=== PATIENT | female | born 1980 | race Two or more races ===

== ENCOUNTER → 2024-05-30 | Outpatient (CLI) | payer MEDICAID, SELFPAY ==
--- NOTE | 2024-05-30 13:30 | XR_ITS ---
Examination: Breast ultrasound, unilateral, left complete Date and time of exam: May 30, 2024 1350 hours INDICATIONS: Breast pain 2 months, 11:00 nodule 8 mm left breast sonogram 12/03/2023 Technique: Real-time chen scale ultrasonographic imaging performed left breast including all 4 quadrants as well as nipple retroareolar and axillary region. Findings: Multiple benign cysts 11:00 nodule 7 x 5 mm IMPRESSION: BI-RADS Category 2: Benign findings
== END | disposition home or self-care (01) ==
LOC: CDIM 13:04
PROVIDERS: PCP Family Medicine; Referring Provider Family Medicine; Visit Provider Family Medicine
DX: N63.0 Unspecified lump in unspecified breast (principal)
CPT/HCPCS: 76641

== ENCOUNTER 2024-08-29 19:53 | Emergency (ER) | payer MEDICAID, SELFPAY ==
[2024-08-29 19:54] VITALS: BMI 29.8
[2024-08-29 20:19] VITALS: BP 123/78; PULSE 83; RESP 17; TEMP 36.9; O2SAT 96
--- NOTE | 2024-08-29 20:30 | PD.EDABDPN ---
ED Abdominal Pain RME/HPI General Chief Complaint: Abdominal Pain Stated complaint: L SIDE ABD PAIN X 3 DAYS Time seen by provider: 08/29/24 20:30 Arrival date/time: 08/29/24 19:53 Source: patient Limitations: no limitations RME / HPI RME / HPI narrative: 44-year-old female presents to the ED with a complaint of left lower quadrant pain she describes as intermittent and sharp that causes radiating pain down to her left lower extremity. This began 4 days ago. Denies fever. Complains of nausea denies vomiting denies diarrhea. MD complaint: abdominal pain Onset (ago): day(s) (4 days) Consistency: intermittent Location: [facility] Related Data LMP Date: 07/17/24 Previous Rx's ?Medication ?Instructions ?Recorded metronidazole 500 mg tablet 500 mg PO Q8H #30 tabs 08/29/24 naproxen 500 mg tablet 500 mg PO BID #20 tabs 08/29/24 sulfamethoxazole 800 1 tab PO BID #20 tabs 08/29/24 mg-trimethoprim 160 mg tablet (Bactrim DS) Allergies Allergy/AdvReac Type Severity Reaction Status Date / Time NKA* Allergy Uncoded 08/29/24 19:57 Review of Systems Constitutional Constitutional: Reports system reviewed and no additional complaints, except as documented Eyes Eyes: Reports system reviewed and no additional complaints, except as documented, Denies dry eyes, Denies exophthalmos and Reports floaters Cardiovascular Cardiovascular: Denies chest pain with activity and Denies claudication ED Exam Narrative Physical exam: There is tenderness to palpation in the left lower quadrant causing the patient to grimace. The right lower quadrant is nontender to palpation negative rebound tenderness. There is decreased bowel sounds. Otherwise there is no guarding and no masses present. General Limitations: Present no limitations General appearance: Present alert and in no apparent distress Head Head exam: Present atraumatic Eye Eye exam: Present normal appearance and EOMI ENT ENT exam: Present normal exam, normal oropharynx and mucous membranes moist Neck Neck exam: Present normal inspection, full ROM and trachea midline Chest Chest inspection: Present normal inspection and symmetric chest wall rise Respiratory Respiratory exam: Present normal lung sounds bilaterally Cardiovascular Cardiovascular exam: Present regular rate, normal rhythm and normal heart sounds Abdominal Exam Abdominal exam: Present soft, tenderness (Left lower quadrant) and normal bowel sounds Abdominal tenderness: Present LLQ Extremities Exam Extremities exam: Present normal inspection and full ROM Back Exam Back exam: Present normal inspection and full ROM Neurological Exam Neurological exam: Present alert and oriented X3 Psychiatric Psychiatric exam: Present normal affect and normal mood Skin Skin exam: Present warm, dry, intact and normal color Course Course Course Narrative: Patient will have a UA, CMP, CBC, hCG, CT of the abdomen and [place]. Quality Measures none Orders Category Date Time Status CT abdomen pelvis wo con Stat Exams 08/29/24 20:34 Completed CBC Stat Lab 08/29/24 20:27 Completed Comprehensive Metabolic Panel Stat Lab 08/29/24 20:27 Completed HCG Qualitative,Urine Stat Lab 08/29/24 20:41 Completed Lipase Stat Lab 08/29/24 20:27 Completed Urinalysis Stat Lab 08/29/24 20:41 Completed HYDROcodone/APAP 10/325 [[place] 10/325] Med 08/29/24 20:34 Discontinued 1 tab PO X1 ONE Vital Signs Vital signs: Vital Signs Temperature 98.4 F 08/29/24 20:19 Pulse Rate 83 08/29/24 20:19 Respiratory Rate 17 08/29/24 20:19 Blood Pressure 123/78 08/29/24 20:19 Pulse Oximetry (%) 96 08/29/24 20:19 Oxygen Delivery Method Room Air 08/29/24 20:19 Abdominal Pain MDM MDM Narrative MDM Narrative:: I reviewed the CT results with the patient explaining to her that she has diverticulitis. I will prescribe Flagyl for her diverticulitis. She is to primary care physician for a follow-up to today's visit within a week or sooner if worse. The mass that is proximal to the uterus is being watched by her primary care physician. She is to have a follow-up within 6 months. Patient is discharged in no apparent distress. Patient data External records reviewed:: Other (specify) (NA) Clinical information provided by:: patient Social determinants that could affect healthcare access:: none (NA) Patient has the following chronic illnesses:: Patient has no known chronic illnesses How is presenting disease/condition affected by chronic disease/condition?: no chronic disease (Patient has no known chronic illness) Evaluation data The following diagnostics were reviewed and interpreted by me:: radiology exam(s) Lab and/or radiology exams considered but not ordered:: I explained the results of the CAT scan to the patient. Interpretation Summary: Diverticulitis, mass adjoining the uterus Medications / Prescriptions Medications or Prescriptions considered but not ordered:: N/A Medication administrations:: Medication Administration History Discontinued Medications Hydrocodone Bitart/Acetaminophen (Hydrocodone/Apap 10/325 Tab) 1 tab PO X1 ONE Stop: 08/29/24 20:35 Last Admin: 08/29/24 20:43 Dose: Not Given Documented By: MURALI Non-Admin Reason: Patient Refused dONE Consultations Consultation(s) initiated? (list below): No Diagnosis Differential diagnosis abdominal pain: abdominal pain, acute appendicitis, calculus of kidney, diverticulitis, endometriosis and gastroenteritis Most likely diagnosis given after review of the tests above:: Diverticulitis Admission Indicated Admission indicated?: not indicated Admission Request Was there a request for admission?: No Admission Attestation Admission request attestation: None Disposition Plan Disposition Plan: Discharge Discharge Attestation Discharge Attestation: The patient and all family members were given an opportunity to ask questions and understood the discharge instructions. Discharge instructions specifically effects, indications for sooner follow up or return to the emergency department, and the expected course of current diagnosis. Patient condition: Stable Discharge Plan Plan Patient Disposition: HOME (Self Care) Discharge Disposition comment: Discharge in no apparent distress Patient condition on transfer: Stable Prescriptions/Referrals Prescriptions/Med Rec: New metronidazole 500 mg tablet 500 mg PO Q8H Qty: 30 0RF sulfamethoxazole-trimethoprim [Bactrim DS] 800-160 mg tablet 1 tab PO BID Qty: 20 0RF naproxen 500 mg tablet 500 mg PO BID Qty: 20 0RF Referrals: Jerry Castillo MD [Primary Care Provider] - In 1 week Problem List Clinical Impression: Diverticulitis Patient/Caregiver Discharge Instructions Discharge Activity: activity as tolerated Print Language: Greenlandic Stand Alone Forms: Paula Award Info., Patient Portal Info Letter
--- NOTE | 2024-08-29 20:34 | XR_ITS ---
Examination: CT abdomen and pelvis without contrast. Coronal 3-D reconstructions. Sagittal 2-D reconstructions. Date and time of exam:August 29, 2024 2139 hours INDICATIONS: Acute left-sided abdominal pain today CTDI: vol (mGy): 9.20 DLP: (mGycm): 490 Technique: Axial images of the abdomen have been obtained, 3 mm slice thickness Intravenous contrast material has not been administered. Low dose protocols were performed. One or more of the following dose reduction techniques were used; automated exposure control, adjustment of the mA and/or KV according to patient size, use of iterative reconstruction technique. Findings: Subsegmental atelectasis at the lung bases No focal liver or splenic lesion Contracted gallbladder No pancreatic or adrenal mass. No renal or ureteral calculi, no hydronephrosis Aorta normal size Normal appendix Colonic diverticulosis Acute diverticulitis distal descending colon No peridiverticular abscess Anteverted uterus Mass anterior pelvis contiguous with the uterus 6.5 cm Prior compressed by this mass Osseous structures intact IMPRESSION: Acute diverticulitis distal descending colon, no peridiverticular abscess Recommend pelvic sonography to assess 6.5 cm anterior pelvic mass contiguous with the uterus
[2024-08-29 20:47] LABS: Basophils # (Auto) 0.1 Thou/mm3 (0.0-0.2); Basophils % (Auto) 1 % (0-2.5); Eosinophils # (Auto) 0.2 Thou/mm3 (0.0-0.5); Eosinophils % (Auto) 2 % (0-10); Immature Granulocytes % (Auto) 0 % (0-0); Immature Granulocytes Auto 0.03 Thou/mm3 (0.00-0.00); Lymphocytes # (Auto) 2.5 Thou/mm3 (1.0-4.8); Lymphocytes % (Auto) 27 % (10-50); Mean Corpuscular HGB Conc 33.3 g/dl (31.0-37.0); Mean Corpuscular Volume 78 fL (80-100); Monocytes # (Auto) 0.7 Thou/mm3 (0.0-0.8); Monocytes % (Auto) 8 % (0-12); Neutrophils # (Auto) 5.9 Thou/mm3 (1.8-7.7); Neutrophils % (Auto) 63 % (37-80); Nucleated Red Blood Cell % 0 /100 WBC (0); Platelet Count 308 Thou/mm3 (140-440); RDW Standard Deviation 39.8 fL (36.4-46.3); Red Blood Count 4.61 Miln/mm3 (4.00-5.20); White Blood Count 9.4 Thou/mm3 (3.6-11.0)
[2024-08-29 20:53] LABS: Collection Type, Urine Clean Catch
[2024-08-29 21:05] LABS: Bacteria,Urine Rare; Bilirubin,Urine Negative (Negative); Blood,Urine Negative (Negative); Clarity,Urine Clear (Clear/Hazy); Color,Urine Yellow (Lt Yel-Yel); Glucose, Urine Negative (Negative); HCG Qualitative,Urine Negative; Hyaline Casts,Urine < 1 /hpf (0-1); Ketones,Urine Negative (Negative); Leukocyte Esterase,Urine Negative (Negative); Nitrite,Urine Negative (Negative); Protein,Urine Trace (Neg - Trace); RBC,Urine 11 /hpf (0-3); Squamous Epithelial Cell,Urine 5 /hpf (0-5); Urobilinogen,Urine Negative mg/dL (0.0-1.0); WBC,Urine 1 /hpf (0-5)
[2024-08-29 21:09] LABS: Alanine Aminotransferase 12 U/L (10-49); Albumin, Serum 4.6 gm/dL (3.5-5.0); Albumin/Globulin Ratio 1.9 (1.2-2.2); Alkaline Phosphatase 93 U/L (46-116); Anion Gap 10 (7-16); Aspartate Amino Transferase 13 U/L (0-34); BUN/Creatinine Ratio 20 Ratio (12-20); Bilirubin,Total 0.3 mg/dL (0.3-1.2); Blood Urea Nitrogen 16 mg/dL (9-23); Carbon Dioxide 24.8 mMol/L (20.0-31.0); Chloride 101 mMol/L (98-107); Creatinine (Component) 0.8 mg/dL (0.6-1.3); Estimated Creatinine Clearance 82.1 mL/min (>60); Globulin 2.4 gm/dL (2.3-3.5); Glucose 121 mg/dL (74-106); Lipase 35 U/L (12-53); Osmolality,Calculated 274 (275-295); Sodium 136 mMol/L (136-145); eGFR > 60 See Note
== END 2024-08-30 | disposition home or self-care (01) ==
PROVIDERS: Physician Assistant; Emergency Provider Emergency Medicine; PCP Family Medicine
DX: K57.32 Diverticulitis of large intestine without perforation or abscess without bleeding (principal); N85.4 Malposition of uterus; J98.11 Atelectasis
CPT/HCPCS: 36415; 74176; 80053; 81001; 81025; 83690; 85025; 99284

== ENCOUNTER 2024-09-14 04:06 | Emergency (ER) | payer MEDICAID, SELFPAY ==
[2024-09-14 04:14] VITALS: BP 142/88; PULSE 90; RESP 18; TEMP 36.9; O2SAT 98
--- NOTE | 2024-09-14 04:37 | EDRME_ITS ---
Rapid Medical Screening Exam [facility] Arrival date/time: 09/14/24 04:06 44F with no significant PMH presents to ED with day of generalized itchy rash and some facial/lip swelling. Patient denies SOB and throat swelling. Chief Complaint: Allergic Reaction Vital signs: Vital Signs Temperature 98.4 F 09/14/24 04:14 Pulse Rate 90 09/14/24 04:14 Respiratory Rate 18 09/14/24 04:14 Blood Pressure 142/88 H 09/14/24 04:14 Pulse Oximetry (%) 98 09/14/24 04:14 Oxygen Delivery Method Room Air 09/14/24 04:14
[2024-09-14] MEDS: FAMOTIDINE 20 MG TABLET PO (04:46)
[2024-09-14] MEDS: DEXAMETHASONE SOD PHOS INJ 10 MG/ML VIAL PO (04:47)
--- NOTE | 2024-09-14 06:27 | EDNOTE_ITS ---
<Statement entered by Gbai Hernandez MD - 09/23/24 19:38> As co-signing physician, I was present and available for consult prn. I concur with the plan and care as documented by the midlevel provider. ED Allergic Reaction RME/HPI General Chief complaint: Allergic Reaction Stated complaint: FACIAL ,LIPS SWELLING Time Seen by Provider: 09/14/24 06:10 Source: patient Arrival date/time: 09/14/24 04:06 44-year-old female with no known medical history presents to the emergency room with a chief complaint of lip swelling and generalized itchiness x 1 day. Mode of arrival: ambulatory Limitations: no limitations RME / HPI RME / HPI narrative: 09/14/24 04:06 44F with no significant PMH presents to ED with day of generalized itchy rash and some facial/lip swelling. Patient denies SOB and throat swelling. Related Data Previous Rx's ?Medication ?Instructions ?Recorded metronidazole 500 mg tablet 500 mg PO Q8H #30 tabs naproxen 500 mg tablet 500 mg PO BID #20 tabs 08/29 sulfamethoxazole 800 1 tab PO BID #20 tabs mg-trimethoprim 160 mg tablet (Bactrim DS) diphenhydramine HCl 25 mg capsule 25 mg PO TID PRN all ergic reaction 09/14/24 #14 caps Allergies Allergy/AdvReac Type Severity Reaction Status Date / Time No Known Allergies Allergy Verified 09/14/24 04:08 Review of Systems Review of Systems Systems Reviewed: All systems reviewed, normal except as documented Constitutional Constitutional: Reports system reviewed and no additional complaints, except as documented, Denies fatigue, Denies fever(s), Denies headache(s) and Denies weakness Eyes Eyes: Denies itchy eyes ENT Ears, Nose, Mouth, and Throat: Denies headache(s), Reports lip swelling, Denies throat swelling, Denies tongue swelling and Denies vertigo Cardiovascular Cardiovascular: Reports system reviewed and no additional complaints, except as documented, Denies chest pain, Denies dyspnea and Denies dyspnea on exertion Respiratory Respiratory: Denies dyspnea, Denies dyspnea on exertion and Denies wheezing Gastrointestinal Gastrointestinal: Reports system reviewed and no additional complaints, except as documented, Denies abdominal pain, Denies cramping, Denies nausea and Denies vomiting Genitourinary Genitourinary: Reports system reviewed and no additional complaints, except as documented Musculoskeletal Musculoskeletal: Reports system reviewed and no additional complaints, except as documented and Denies back pain Integumentary/Breasts Skin/Breast: Reports system reviewed and no additional complaints, except as documented and Denies wounds Neurologic Neurologic: Reports system reviewed and no additional complaints, except as documented, Denies confusion, Denies headache(s), Denies lack of coordination, Denies vertigo and Denies weakness Psychiatric Psychiatric: Reports system reviewed and no additional complaints, except as documented, Denies anxiety, Denies confusion, Denies depression, Denies paranoia, Denies suicidal ideation and Denies tactile hallucinations Endocrine Endocrine: Reports system reviewed and no additional complaints, except as documented and Denies fatigue Hematologic/Lymphatic Hematologic/Lymphatic: Reports system reviewed and no additional complaints, except as documented and Denies lymphadenopathy Allergic/Immunologic Allergic/Immunologic: Denies GI upset with certain foods, Denies itchy eyes, Reports lip swelling, Denies seasonal rhinorrhea, Denies throat swelling, Denies tongue swelling, Denies urticaria and Denies wheezing Past Medical History Social History SMOKING STATUS: Never smoker ED Exam General Limitations: Present no limitations General appearance: Present alert and in no apparent distress Head Head exam: Present atraumatic Eye Eye exam: Present normal appearance, PERRL and EOMI ENT ENT exam: Present normal exam, normal oropharynx and mucous membranes moist Neck Neck exam: Present normal inspection, full ROM and trachea midline Chest Chest inspection: Present normal inspection and symmetric chest wall rise Respiratory Respiratory exam: Present normal lung sounds bilaterally; Absent respiratory distress, wheezes, stridor, accessory muscle use or prolonged expiratory phase Cardiovascular Cardiovascular exam: Present regular rate, normal rhythm and normal heart sounds; Absent tachycardia Abdominal Exam Abdominal exam: Present soft and normal bowel sounds Extremities Exam Extremities exam: Present normal inspection and full ROM Back Exam Back exam: Present normal inspection and full ROM Neurological Exam Neurological exam: Present alert, oriented X3 and CN II-XII intact Psychiatric Psychiatric exam: Present normal affect and normal mood Skin Skin exam: Present warm, dry, intact and normal color Course Quality Measures none Orders Category Date Time Status Dexamethasone Inj [Decadron Inj] Med 09/14/24 04:36 Discontinued 10 mg PO X1 ONE DiphenhydrAMINE [Benadryl] Med 09/14/24 04:36 Discontinued 25 mg PO X1 ONE Famotidine [Pepcid] Med 09/14/24 04:36 Discontinued 20 mg PO X1 ONE Vital Signs Vital signs: Vital Signs Temperature 98.4 F 09/14/24 04:14 Pulse Rate 90 09/14/24 04:14 Respiratory Rate 18 09/14/24 04:14 Blood Pressure 142/88 H 09/14/24 04:14 Pulse Oximetry (%) 98 09/14/24 04:14 Oxygen Delivery Method Room Air 09/14/24 04:14 O2 saturation 98% within normal limits Allergic Reaction MDM Narrative MDM Narrative:: 44-year-old female with no known medical history presents to the emergency room with a chief complaint of lip swelling and generalized itchiness x 1 day. Patient is hemodynamically stable and in no apparent distress Physical examination during my reevaluation shows clear bilateral lung sounds. There is no wheezing there is no stridor there is no abnormal breathing. The patient has some minor lip swelling which patient states has decreased slightly. The patient denies any tongue swelling throat swelling difficulty swallowing or difficulty speaking. There is no evidence of any tongue swelling or throat swelling during evaluation. The patient states her itchiness has gone away. Patient was discharged and educated to follow-up with primary care provider in the next 24 to 48 hours and return to the emergency room for any evidence of worsening signs or symptoms Patient data External records reviewed:: [facility] previous records Clinical information provided by:: patient Social determinants that could affect healthcare access:: none Patient has the following chronic illnesses:: No chronic illness How is presenting disease/condition affected by chronic disease/condition?: no chronic disease Evaluation data The following diagnostics were reviewed and interpreted by me:: lab results and radiology exam(s) Lab and/or radiology exams considered but not ordered:: Labs and radiology exams considered and ordered Interpretation Summary: N/A Medications / Prescriptions Medications or Prescriptions considered but not ordered:: Medication given Medication administrations:: Medication Administration History Discontinued Medications Dexamethasone Sodium Phosphate (Dexamethasone Sod Phos Inj 10 Mg/Ml Vial) 10 mg PO X1 ONE Stop: 09/14/24 04:37 Last Admin: 09/14/24 04:47 Dose: 10 mg Documented By: CVRamon Diphenhydramine HCl (Diphenhydramine 25 Mg Capsule) 25 mg PO X1 ONE Stop: 09/14/24 04:37 Last Admin: 09/14/24 04:45 Dose: 25 mg Documented By: CVL Famotidine (Famotidine 20 Mg Tablet) 20 mg PO X1 ONE Stop: 09/14/24 04:37 Last Admin: 09/14/24 04:46 Dose: 20 mg Documented By: CVL Medication given Consultations Consultation(s) initiated? (list below): No Diagnosis Differential Diagnosis allergic reaction: anaphylaxis, allergic reaction, angioedema, contact dermatitis and urticaria Most likely diagnosis given after review of the tests above:: Allergic reaction Admission Indicated Admission indicated?: not indicated Admission Request Was there a request for admission?: No Disposition Plan Disposition Plan: Discharge Discharge Attestation Discharge Attestation: The patient and all family members were given an opportunity to ask questions and understood the discharge instructions. Discharge instructions specifically effects, indications for sooner follow up or return to the emergency department, and the expected course of current diagnosis. Patient condition: Stable Discharge Plan Plan Patient Disposition: HOME (Self Care) Discharge Disposition comment: Stable Prescriptions/Referrals Prescriptions/Med Rec: New diphenhydramine HCl 25 mg capsule 25 mg PO TID PRN (Reason: allergic reaction) Qty: 14 0RF No Action metronidazole 500 mg tablet 500 mg PO Q8H Qty: 30 0RF sulfamethoxazole-trimethoprim [Bactrim DS] 800-160 mg tablet 1 tab PO BID Qty: 20 0RF naproxen 500 mg tablet 500 mg PO BID Qty: 20 0RF Problem List Clinical Impression: Allergic reaction Patient/Caregiver Discharge Instructions Education Materials: ED Medicine Reaction: Allergic Additional Instructions: Por favor, consulte con bowie m?dico de cabecera en las pr?ximas 24 a 48 horas. Se envi? el medicamento a bowie farmacia para ayudarle con bowie reacci?n al?rgica. Contin?e ryan?ndolo seg?n lo indicado. Si observa cualquier signo de empeoramiento de los signos o s?ntomas, acuda a urgencias de inmediato. Print Language: [place] Stand Alone Forms: Paula Award Info., Work/School Release, Patient Portal Info Letter PA/IGNITION SPECIALIST Supervising Physician PA/IGNITION SPECIALIST Supervising Physician: Dr. HERNANDEZ
[2024-09-14 06:41] VITALS: RESP 18
== END 2024-09-14 06:42 | disposition home or self-care (01) ==
LOC: SERX 06:32
PROVIDERS: Emergency Provider Emergency Medicine; PCP Family Medicine
DX: R22.0 Localized swelling, mass and lump, head (principal)
CPT/HCPCS: 99282; J1100; A9270